=== PATIENT | female | born 1975 | race Caucasian/White ===

== ENCOUNTER → 2016-10-06 | Outpatient (CLI) | payer BC, OTHER | LOC: US 09-07 13:00 | DX: R10.9 Unspecified abdominal pain (principal) ==

== ENCOUNTER → 2020-06-04 | Day surgery (SDC) | payer OTHER ==
[~2020-06-04] MED LIST: ANAPROX DS550 MG PO
[2020-06-04 09:22] LABS: RED BLOOD COUNT 4.48 M/UL (4.00-5.10); WHITE BLOOD COUNT 5.9 K/UL (4.5-11.0)
== END | disposition home or self-care (01) ==
LOC: OR 08:04
PROVIDERS: Obstetrics & Gynecology
DX: N93.8 Other specified abnormal uterine and vaginal bleeding (principal); N84.0 Polyp of corpus uteri; N92.1 Excessive and frequent menstruation with irregular cycle; N94.3 Premenstrual tension syndrome; N94.6 Dysmenorrhea, unspecified; N89.8 Other specified noninflammatory disorders of vagina; R32 Unspecified urinary incontinence; G44.209 Tension-type headache, unspecified, not intractable; N81.6 Rectocele; N81.10 Cystocele, unspecified; M54.32 Sciatica, left side; Z79.1 Long term (current) use of non-steroidal anti-inflammatories (NSAID); Z98.51 Tubal ligation status; Z88.1 Allergy status to other antibiotic agents; Z88.0 Allergy status to penicillin
CPT/HCPCS: 81001; 85025; J1100; J1885; J2001; J2250; J2405; J2704; J2765; J3010; J7120